=== PATIENT | male | born 2000 | race Caucasian/White ===

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

== ENCOUNTER 2022-05-11 17:37 | Emergency (ER) | payer OTHER ==
[~2022-05-11] VITALS: Ht 172.7 cm; Wt 60.4 kg
[2022-05-11 20:30] VITALS: BP 131/77
== END 2022-05-11 20:46 | disposition home or self-care (01) ==
LOC: M ED 17:37
DX: M54.2 Cervicalgia (principal); W13.2XXA Fall from, out of or through roof, initial encounter; Y92.099 Unspecified place in other non-institutional residence as the place of occurrence of the external cause; Z88.0 Allergy status to penicillin

== ENCOUNTER → 2022-05-29 | Outpatient (CLI) | payer OTHER | LOC: M CLY 14:06 | PROVIDERS: ATTEND Physician Assistant | DX: M41.9 Scoliosis, unspecified (principal) ==